=== PATIENT | male | born 1985 | race Caucasian/White ===

== ENCOUNTER → 2017-01-12 16:13 | Emergency (ER) | payer OTHER ==
[~2017-01-12 16:13] MED LIST: NS 0.9% 1000 ML* 1,000 ML IV ONE
[2017-01-12 18:24] LABS: Hematocrit 47 % (42-52); Mean Corpuscular HGB Conc 34 g/dl (31-36); Mean Corpuscular Hemoglobin 33 pg (27-31); Mean Corpuscular Volume 97 fL (80-94); Mean Platelet Volume 8 um3 (7.4-10.4); Red Blood Count 4.86 10^6/ul (4.0-5.4); Red Cell Distribution Width 14 % (10.5-15); White Blood Count 6.7 10^3/ul (3.5-10.8)
[2017-01-12 18:38] LABS: ALT 55 U/L (7-52); AST 37 U/L (13-39); Albumin 4.1 g/dL (3.2-5.2); Alkaline Phosphatase 67 U/L (34-104); Anion Gap 4 mmol/L (2-11); BUN/Creatinine Ratio 12.8 (8-20); Blood Urea Nitrogen 14 mg/dL (6-24); CO2 Carbon Dioxide 30 mmol/L (22-32); Calcium 9.1 mg/dL (8.6-10.3); Chloride 104 mmol/L (101-111); EGFR African American 102.2 (>60); EGFR Non-African American 79.4 (>60); Globulin 3.4 g/dL (2-4); Glucose 91 mg/dL (70-100); Potassium 4.2 mmol/L (3.5-5.0); Sodium 138 mmol/L (133-145); Total Protein 7.5 g/dL (6.4-8.9)
[2017-01-12 19:07] LABS: Urine Bilirubin Negative (Negative); Urine Glucose Negative (Negative); Urine Nitrite Negative (Negative)
[2017-01-12 19:14] LABS: Acetaminophen < 15 mcg/mL; Alcohol < 10 mg/dL (<10); Salicylate < 2.50 mg/dL (<30)
[2017-01-12 19:16] LABS: TSH (Thyroid Stimulating Horm) 18.32 mcIU/mL (0.34-5.60)
[2017-01-12 19:26] LABS: Benzodiazepine Urine Screen None Detected (None Detect)
--- NOTE | 2017-01-12 19:59 | ED ---
Altered Mental Status - HPI Summary HPI Summary: 31M presents with family for abnormal vital signs and MHE. mom states that since he has been off the latuda for a month. Mom states that they moved him from [facility] from [facility] and they have not started him on any medication yet. He has history of depression but mom thinks it is bipolar. He has been increasingly tired for past two weeks. mom states is having a hard time getting him out of bed as just sleeps everyday. Mom says that they tried to get him up today and he was not really responding. They checked his pulse and it was at 44 and his 02 was at 91 and his blood pressure was low. mom states this occurred before in May before he was on the latuda. mom states he has not been eating or drinking well and that he is not taking his thyroid meds. He has not had any fever, cough, abdominal pain, chest pain, SOB, dizziness, gait disturbances, vomiting or diarrhea. no recent illness. is not voicing any si but does not typically say if is suicidal. - History Of Current Complaint Chief Complaint: EDGeneral Stated Complaint: SEMI RESPONSIVE Time Seen by Provider: 01/12/17 17:46 - Allergies/Home Medications Allergies/Adverse Reactions: Allergies Allergy/AdvReac Type Severity Reaction Status Date / Time No Known Allergies Allergy Verified 12/23/12 12:00 Home Medications: Home Medications Calcipotriene 0.005 % TOPICAL BID 01/12/17 [History Confirmed 01/12/17] Chlorhexidine MOUTHWASH 0.12%* [Peridex Mouth Wash 0.12%*] 15 ml SWISH SPIT BID 01/12/17 [History Confirmed 01/12/17] Docusate CAP* [Colace Cap*] 100 mg PO BID 01/12/17 [History Confirmed 01/12/17] Levothyroxine TAB* [Synthroid TAB*] 200 mcg PO DAILY 01/12/17 [History Confirmed 01/12/17] PMH/Surg Hx/FS Hx/Imm Hx Endocrine/Hematology History: Reports: Hx Thyroid Disease Denies: Hx Diabetes Cardiovascular History: Denies: Hx Hypertension, Hx Pacemaker/ICD Respiratory History: Denies: Hx Asthma, Hx Chronic Obstructive Pulmonary Disease (COPD) GI History: Denies: Hx Ulcer Sensory History: Denies: Hx Hearing Aid Psychiatric History: Denies: Hx Eating Disorder, Hx Panic Disorder, Hx of Violent Episodes Against Others - Surgical History Surgery Procedure, Year, and Place: extraction of bilateral cataracts. 3 moles removed from back - Immunization History Date of Tetanus Vaccine: Unknown Date of Influenza Vaccine: unk Infectious Disease History: No Infectious Disease History: Denies: Hx Hepatitis, Hx Human Immunodeficiency Virus (HIV), Traveled Outside the [place] in Last 30 Days - Family History Known Family History: Positive: Other - depression - Social History Alcohol Use: None Substance Use Type: Reports: None Smoking Status (MU): Never Smoked Tobacco Review of Systems Negative: Fever Negative: Chest Pain Negative: Shortness Of Breath All Other Systems Reviewed And Are Negative: Yes Physical Exam Triage Information Reviewed: Yes Vital Signs On Initial Exam: Initial Vitals Temp Pulse Resp BP Pulse Ox 98.3 F 62 20 126/55 97 01/12/17 16:29 01/12/17 16:29 01/12/17 16:29 01/12/17 16:29 01/12/17 16:29 Vital Signs Reviewed: Yes Appearance: Positive: Well-Appearing Skin: Positive: Warm, Dry, Other - psoarsis across body Head/Face: Positive: Normal Head/Face Inspection Eyes: Positive: Normal, EOMI, MIKAYLA, Conjunctiva Clear ENT: Positive: Normal ENT inspection, Pharynx normal, TMs normal Respiratory/Lung Sounds: Positive: Clear to Auscultation, Breath Sounds Present Cardiovascular: Positive: Normal, RRR Abdomen Description: Positive: Nontender, Soft Bowel Sounds: Positive: Present Musculoskeletal: Positive: Normal Neurological: Positive: Normal Psychiatric: Positive: Normal - [place] Coma Scale Coma Scale Total: 15 Diagnostics - Vital Signs Vital Signs Temp Pulse Resp BP Pulse Ox 01/12/17 18:30 61 17 109/54 97 01/12/17 18:01 66 15 143/74 94 01/12/17 18:00 143/57 01/12/17 17:34 64 15 151/77 95 01/12/17 17:00 64 15 115/48 95 01/12/17 16:41 65 15 96 01/12/17 16:29 98.3 F 62 20 126/55 97 - Laboratory Lab Results: Lab Results 01/12/17 01/12/17 01/12/17 Range/Units 18:11 18:11 18:52 WBC 6.7 (3.5-10.8) 10^3/ul RBC 4.86 (4.0-5.4) 10^6/ul Hgb 16.0 (14.0-18.0) g/dl Hct 47 (42-52) % MCV 97 H (80-94) fL MCH 33 H (27-31) pg MCHC 34 (31-36) g/dl RDW 14 (10.5-15) % Plt Count 243 (150-450) 10^3/ul MPV 8 (7.4-10.4) um3 Neut % (Auto) 51.0 (38-83) % Lymph % (Auto) 41.0 (25-47) % Becker % (Auto) 5.0 (1-9) % Eos % (Auto) 1.8 (0-6) % Baso % (Auto) 1.2 (0-2) % Absolute Neuts (auto) 3.4 (1.5-7.7) 10^3/ul Absolute Lymphs (auto) 2.8 (1.0-4.8) 10^3/ul Absolute Monos (auto) 0.3 (0-0.8) 10^3/ul Absolute Eos (auto) 0.1 (0-0.6) 10^3/ul Absolute Basos (auto) 0.1 (0-0.2) 10^3/ul Absolute Nucleated RBC 0 10^3/ul Nucleated RBC % 0.1 Sodium 138 (133-145) mmol/L Potassium 4.2 (3.5-5.0) mmol/L Chloride 104 (101-111) mmol/L Carbon Dioxide 30 (22-32) mmol/L Anion Gap 4 (2-11) mmol/L BUN 14 (6-24) mg/dL Creatinine 1.09 (0.67-1.17) mg/dL Est GFR ( Amer) 102.2 (>60) Est GFR (Non-Af Amer) 79.4 (>60) BUN/Creatinine Ratio 12.8 (8-20) Glucose 91 (70-100) mg/dL Calcium 9.1 (8.6-10.3) mg/dL Total Bilirubin 0.50 (0.2-1.0) mg/dL AST 37 (13-39) U/L ALT 55 H (7-52) U/L Alkaline Phosphatase 67 (34-104) U/L CK-MB (CK-2) 8.4 H (0.6-6.3) ng/mL Total Protein 7.5 (6.4-8.9) g/dL Albumin 4.1 (3.2-5.2) g/dL Globulin 3.4 (2-4) g/dL Albumin/Globulin Ratio 1.2 (1-3) TSH 18.32 H (0.34-5.60) mcIU/mL Urine Color Urine Appearance Urine pH (5-9) Ur Specific Ald[place] (1.010-1.030) Urine Protein (Negative) Urine Ketones (Negative) Urine Blood (Negative) Urine Nitrate (Negative) Urine Bilirubin (Negative) Urine Urobilinogen (Negative) Ur Leukocyte Esterase (Negative) Urine Glucose (Negative) Urine Ascorbic Acid (Negative) Salicylates < 2.50 (<30) mg/dL Urine Opiates Screen None detected (None Detect) Acetaminophen < 15 mcg/mL Ur Barbiturates Screen None detected (None Detect) Ur Phencyclidine Scrn None detected (None Detect) Ur Amphetamines Screen None detected (None Detect) U Benzodiazepines Scrn None detected (None Detect) Urine Cocaine Screen None detected (None Detect) U Cannabinoids Screen None detected (None Detect) Serum Alcohol < 10 (<10) mg/dL 01/12/17 Range/Units 18:52 WBC (3.5-10.8) 10^3/ul RBC (4.0-5.4) 10^6/ul Hgb (14.0-18.0) g/dl Hct (42-52) % MCV (80-94) fL MCH (27-31) pg MCHC (31-36) g/dl RDW (10.5-15) % Plt Count (150-450) 10^3/ul MPV (7.4-10.4) um3 Neut % (Auto) (38-83) % Lymph % (Auto) (25-47) % Becker % (Auto) (1-9) % Eos % (Auto) (0-6) % Baso % (Auto) (0-2) % Absolute Neuts (auto) (1.5-7.7) 10^3/ul Absolute Lymphs (auto) (1.0-4.8) 10^3/ul Absolute Monos (auto) (0-0.8) 10^3/ul Absolute Eos (auto) (0-0.6) 10^3/ul Absolute Basos (auto) (0-0.2) 10^3/ul Absolute Nucleated RBC 10^3/ul Nucleated RBC % Sodium (133-145) mmol/L Potassium (3.5-5.0) mmol/L Chloride (101-111) mmol/L Carbon Dioxide (22-32) mmol/L Anion Gap (2-11) mmol/L BUN (6-24) mg/dL Creatinine (0.67-1.17) mg/dL Est GFR ( Amer) (>60) Est GFR (Non-Af Amer) (>60) BUN/Creatinine Ratio (8-20) Glucose (70-100) mg/dL Calcium (8.6-10.3) mg/dL Total Bilirubin (0.2-1.0) mg/dL AST (13-39) U/L ALT (7-52) U/L Alkaline Phosphatase (34-104) U/L CK-MB (CK-2) (0.6-6.3) ng/mL Total Protein (6.4-8.9) g/dL Albumin (3.2-5.2) g/dL Globulin (2-4) g/dL Albumin/Globulin Ratio (1-3) TSH (0.34-5.60) mcIU/mL Urine Color Yellow Urine Appearance Clear Urine pH 6.0 (5-9) Ur Specific Alden 1.012 (1.010-1.030) Urine Protein Negative (Negative) Urine Ketones Negative (Negative) Urine Blood Negative (Negative) Urine Nitrate Negative (Negative) Urine Bilirubin Negative (Negative) Urine Urobilinogen Negative (Negative) Ur Leukocyte Esterase Negative (Negative) Urine Glucose Negative (Negative) Urine Ascorbic Acid * H (Negative) Salicylates (<30) mg/dL Urine Opiates Screen (None Detect) Acetaminophen mcg/mL Ur Barbiturates Screen (None Detect) Ur Phencyclidine Scrn (None Detect) Ur Amphetamines Screen (None Detect) U Benzodiazepines Scrn (None Detect) Urine Cocaine Screen (None Detect) U Cannabinoids Screen (None Detect) Serum Alcohol (<10) mg/dL Result Diagrams: 01/12/17 18:11 01/12/17 18:11 Lab Statement: Any lab studies that have been ordered have been reviewed, and results considered in the medical decision making process. - EKG No standard instances Cardiac Rate: NL EKG Rhythm: Sinus Rhythm EKG Interpretation: sinus rhythm Re-Evaluation - Re-Evaluation First Eval Re-Evaluation Time: 20:15 Comment: discussed lab work Second Eval Re-Evaluation Time: 01:00 Comment: family is become frusturated as mental health as not seen patient Altered Mental Statu Course/Dx - Course Course Of Treatment: 31M presents with family for abnormal vital signs and MHE. mom states that since he has been off the latuda for a month. Mom states that they moved him from [facility] from [facility] and they have not started him on any medication yet. He has history of depression but mom thinks it is bipolar. He has been increasingly tired for past two weeks. mom states is having a hard time getting him out of bed as just sleeps everyday. Mom says that they tried to get him up today and he was not really responding. They checked his pulse and it was at 44 and his 02 was at 91 and his blood pressure was low. mom states this occurred before in May before he was on the latuda. mom states he has not been eating or drinking well and that he is not taking his thyroid meds. He has not had any fever, cough, abdominal pain, chest pain, SOB, dizziness, gait disturbances, vomiting or diarrhea. no recent illness. is not voicing any si but does not typically say if it suicidal. has psorias. lungs CTA, heart RRR, vital normal here. labs order CKMB instead of CK and is elevated so did troponin neg and ekg. ckmb trending downward. do not suspect any ACS. mom requesting MHE. mom only wants labs done. normal PE. gave two liters of fluid. discussed case with dr fitzgerald. tsh is elevated. explained this to family that will need to follow up with primary about thyroid. patient medically clear for MHE. signed out to dr west pending MHE. - Diagnoses Differential Diagnosis/HQI/PQRI: Hypoglycemia, Metabolic Disorder, Overdose Discharge Diagnoses: Lethargic, Depression Discharge - Discharge Plan Condition: Stable Disposition: OTHER Discharge Disposition Comment: signed out to dr west pending MHE Referrals: Darrick Gonzalez MD [Primary Care Provider] -
[2017-01-13 01:15] VITALS: BP 117/48
== END ==
LOC: ED 16:13
DX: R53.83 Other fatigue (principal); F32.9 Major depressive disorder, single episode, unspecified; E07.9 Disorder of thyroid, unspecified
CPT/HCPCS: 36415; 80053; 80307; 80320; 80329; 81003; 82553; 84443; 84484; 85025; 93005; 99284; G0480